=== PATIENT | female | born 1985 | race Hispanic/Latino ===

== ENCOUNTER 2016-09-01 17:54 | Emergency (ER) | payer OTHER ==
[~2016-09-01] VITALS: Ht 152.4 cm; Wt 50.0 kg
[2016-09-01 18:08] VITALS: BP 106/61; PULSE 71; RESP 15; O2SAT 98
--- NOTE | 2016-09-01 18:31 | ED.REPORT ---
HPI-Extremity Problem Upper Date of Service Sep 01, 2016 ED Provider: Jayant Abebe MD Patient is a 30 year old female who presents to the ED complaining of left hand pain that began earlier this evening. The pain in her hand initially began in her fingers and migrated up to her hand and became increasingly worse. 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 her pain is exacerbated by flexion and extension. She was seen at Urgent Care who gave her pain medication that provided little relief. She is currently expressing concern because the pain has continued to migrate up her arm. She denies any numbness/tingling or weakness in the hand. No redness, warmth, swelling, fevers. Nursing Notes Stated Complaint: LEFT HAND INJURY Chief Complaint: Extremity Trauma Nursing Notes Reviewed: Yes Allergies: Coded Allergies: No Known Allergies (Verified , 09/01/16) General Time Seen by MD: 18:30 Chief Complaint Hand Injury left Hx Obtained From: Patient Arrived By: Walk-in Onset Occurred: Just prior to arrival Symptom Duration: Since onset Location: : Hand left Quality: Painful Severity: Current: Moderate Severity: Maximum: Moderate Associated with: Denies: Numb extremities, Weakness Pertinent Negative: Pt denies other symptoms Exacerbated by: Extension, Flexion Recent Healthcare: No recent doctor visit, No recent hospitalization Past Medical History Past Medical History None reported. Past Surgical History None reported. Smoking History Unknown if Ever Smoker Social History Other Social History: Good social support, Local resident Occupation [employer] Ambulatory Status Independent Review of Systems Musculoskeletal: Reports: Extremity pain (left hand pain ) Neurologic: Denies: Numbness, Weakness Complete sys rev & neg: except as marked. Physical Exam Initial Vital Signs Vital Signs (First) Date Time Temp Pulse Resp B/P Pulse Ox O2 Delivery O2 Flow Rate FiO2 09/01/16 18:08 36.8 71 15 106/61 98 Room Air Initial VS: Reviewed Neck: Supple, Non-tender, Full range of motion Lower Extremities: Vascular intact, Neuro intact, No swelling, No tenderness Skin: Warm, Dry, No cyanosis Neurologic: Alert, Oriented, Nonfocal Psychiatric: Mood/affect normal, Behavior normal, Normal thought content General/Constitutional: Awake, Alert, No acute distress, Well appearing, Well developed Neck: Atraumatic, Supple Respiratory / Chest: Atraumatic, Breath sounds NL, Breath sounds = bilat, No respiratory distress Cardiovascular: Heart rate NL, Regular rhythm, Heart sounds NL, No gallop, No murmurs, No rubs Upper Extremity / MS: Atraumatic, Inspection NL, Neurologic intact, Vascular intact Wrist / Hand: Atraumatic, Full range of motion, No swelling, No erythema, Non- tender, No deformity, Neurologic intact, Vascular intact Left Hand: Positive: Tenderness present... (Over the dorsum of the 3rd digit) Interpretation & Diagnostics X-Ray Interpretation Xray Interpretation: Negative for fracture X-Ray Ordered: Hand left Interpretation / Wet Read by: Wet read ED physician Re-Eval/Medical Decision Med Decision/Clinical Course Patient is a 30 year old female who presents to the ED complaining of left hand pain that began earlier this evening. The pain in her hand initially began in her fingers and migrated up to her hand and became increasingly worse. 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 her pain is exacerbated by flexion and extension. She was seen at Urgent Care who gave her pain medication that provided little relief. She is currently expressing concern because the pain has continued to migrate up her arm. She denies any numbness/tingling or weakness in the hand. No redness, warmth, swelling, fevers. Here in the emergency department the patient is afebrile stable vital signs and examination as above. Plain films are completely unremarkable. No evidence of fracture. History of pain with flexion and extension in the setting of repetitive picking of strawberry suggestive of tendonitis. Considered possibility of infectious process however there is no redness, warmth or swelling. My suspicion for tenosynovitis is extremely low. Recommend ibuprofen, ice packs, rest and follow-up with primary care physician. Patient appropriate for discharge. Prior to discharge follow- up and return precautions were reviewed in detail with the patient who verbalized understanding and agreement with the plan. The patient was discharged in stable condition. Re-Evaluation/Progress : Time of Eval: 19:22 Re-Evaluation/Progress Note: Patient is rechecked. She is informed of her results and diagnosis. All questions about the intended treatment plan are addressed. She understands and agrees with the plan to discharge with follow up. Counseled Regarding: Diagnosis, Need for follow-up, When/why to return to ED Discharge & Departure Impression: Primary Impression: Finger tendinitis Additional Impression: Finger pain Laterality: unspecified laterality Qualified Code: M79.646 - Pain in unspecified finger(s) Disposition: Home Discharge Condition All VS Reviewed: Yes Condition: Improved Patient Instructions: Tendinitis (ED) Additional Instructions: Thank you for seeking care at emergency room. Our primary goal today in the ED was to evaluate you for any life-threatening conditions. Your evaluation was reassuring and your pain is likely due to finger tendinitis. Your X-ray today is negative for fracture. Take ibuprofen as directed for pain. Use ice and heat intermittently to help relieve the pain. You should follow-up with your primary doctor in the next week. You should return to the ED immediately if you develop any numbness/tingling in the hand, worsening pain or any other concerning signs or symptoms. Thank you for letting us partake in your care today. [employer] Alycia por la bsqueda de atencin en urgencias. Nuestro principal objetivo hoy en el ED fue evaluArte para cualquier condicin peligrosa para la madelin. Girggs evaluacin era tranquilizadora y el dolor es probablemente debido a la tendinitis de los dedos. Griggs radiografa hoy es negativa para la fractura. Michelle ibuprofeno hank se indica para el dolor. Utilizar hielo y calor intermitentemente para ayudar a aliviar el dolor. Deberas de seguimiento con griggs mdico de atencin primaria en la prxima semana. Usted debe devolver a la ED inmediatamente si usted desarrolla cualquier entumecimiento/hormigueo en la mano, empeoramiento del dolor o cualquier otro relativo a las leah o sntomas. Alycia por dejarnos participar en griggs atencin hoy en da. Referrals: [facility] (Family) Scribe Attestation Portions of this note were transcribed by Kandice Barahona. I, Dr. Abebe personally performed the history, physical exam and medical decision-making; I reviewed and confirmed the accuracy of the information in the transcribed note. Signed by: Leslye Blancas, 09/01/16 101. copies to: [facility] Jayant Abebe MD Sep 01, 2016 18:31 KANDICE BARAHONA Sep 01, 2016 18:50
[2016-09-01 20:52] VITALS: PULSE 80; RESP 16
--- NOTE | 2016-09-01 20:59 | DRSVH ---
PROCEDURE: X-RAY LEFT HAND, MINIMUM THREE VIEWS ([id number]) INDICATIONS: hand pain TECHNIQUE: 3 views of the hand(s) acquired. COMPARISON: None. FINDINGS: Bones: No fractures or dislocations. Carpal bones are normally aligned. No suspicious bony lesions . Soft tissues: No suspicious soft tissue calcifications. IMPRESSION: No radiographic findings to explain hand pain. Dictated by: Claudette Vee M.D. on 09/01/2016 at 20:55 Approved by: Claudette Vee M.D. on 09/01/2016 at 20:57
== END 2016-09-01 20:52 | disposition home or self-care (01) ==
LOC: SED 17:54
DX: M65.842 Other synovitis and tenosynovitis, left hand (principal); X50.1XXA Overexertion from prolonged static or awkward postures, initial encounter; Y93.H2 Activity, gardening and landscaping; Y99.0 Civilian activity done for income or pay; Y92.74 Orchard as the place of occurrence of the external cause